=== PATIENT | male | born 1985 | race African-American/Black ===

== ENCOUNTER 2017-04-04 12:44 | Emergency (ER) | payer MEDICAID, SELFPAY ==
[~2017-04-04] VITALS: Ht 172.7 cm; Wt 74.8 kg
[~2017-04-04 12:44] MED LIST: MYLANTA II30 ML ORAL; NKM; RANITIDINE HCL150 MG ORAL
[2017-04-04] MEDS ORDERED: Bacitracin Oint UD TOPIC ONE (13:15)
[2017-04-04] MEDS ORDERED: Norco 5mg/325mg tab ORAL ONE (13:15)
--- NOTE | 2017-04-04 13:23 | Emergency Room Report ---
History of Present Illness General Chief Complaint: Skin Rash/Abscess Source: Patient Present Illness [facility] The patient is a 31-year-old male who denies any medical history presenting for a rash on his testicles. The patient states that he noticed an open wound 5 weeks prior and has been trying to self treat by using peroxide and Neosporin. He states that this has not helped and the wound has now enlarged. He denies any injury to the area and denies any prior lesions on his penis or testicles. He denies any STDs or HIV. He states pain is a 3/10 dull ache and does not radiate. Pain worse with touch. He denies other symptoms including dysuria, hematuria, fever, chills, abdominal pain Allergies: Coded Allergies: No Known Allergies (Unverified , 05/03/14) Patient History Past Medical History: see triage record Pertinent Family History: none Reviewed Nursing Documentation: PMH: Agreed, PSxH: Agreed Nursing Documentation-PMH Past Medical History: No Stated History Hx Gastrointestinal Problems: Yes - reflux Review of Systems All Other Systems: negative except mentioned in HPI Physical Exam Vital Signs Date Time Temp Pulse Resp B/P Pulse Ox O2 Delivery O2 Flow Rate FiO2 04/04/17 12:53 100.8 98 18 111/71 100 Room Air Sp02 EP Interpretation: reviewed, normal General Appearance: no apparent distress, alert, GCS 15, non-toxic Head: normocephalic, atraumatic Eyes: bilateral eye PERRL, bilateral eye normal inspection ENT: hearing grossly normal, normal pharynx, no angioedema, normal voice Gastrointestinal: normal bowel sounds, non tender, soft, non-distended, no guarding, no rebound Genitourinary: no CVA tenderness, penis normal, other - There are 2 circular shallow ulcerations on both left and right lateral scrotum. Tender to palpation. There is clear to yellow weeping. Foul odor. Musculoskeletal: back normal, gait/station normal, normal range of motion, non- tender Neurologic: alert, oriented x3, responsive, motor strength/tone normal, sensory intact, speech normal Skin: normal turgor, other - erythematous ulcerations to scrotum with weeping Lymphatic: no adenopathy Medical Decision Making PA Attestation Dr. Cherry is my supervising physician. Patient management was discussed with my supervising physician Diagnostic Impression: Primary Impression: Cellulitis Qualified Codes: L03.818 - Cellulitis of other sites Additional Impression: Herpetic lesion ER Course The patient is a 31-year-old male presenting for testicular lesions Differential diagnosis considered not limited to: Cellulitis, herpes, STD, syphilis, orchitis, among others Physical exam is consistent with herpetic lesion which has become infected The are is cleaned with sterile water and betadine. bacitracin applied with sterile dressing The patient will be treated for cellulitis and herpes with a prescription for Keflex and acyclovir. He needs to followup with primary doctor within 3 days. ER precautions given Last Vital Signs Date Time Temp Pulse Resp B/P Pulse Ox O2 Delivery O2 Flow Rate FiO2 04/04/17 12:53 100.8 98 18 111/71 100 Room Air Status: improved Disposition: HOME, SELF-CARE Condition: Improved Scripts Bacitracin (Bacitracin) 28.4 Gm Oint...g. 1 APPLIC TOPIC THREE TIMES A DAY, #28 GM Prov: TINOANMARKO P.A. 04/04/17 Amoxicillin/Potassium Clav 500-125 Tablet* (AUGMENTIN 500-125 TABLET*) 1 Each Tablet 1 TAB ORAL THREE TIMES A DAY, #21 TAB Prov: TERZIANMARKO P.A. 04/04/17 Acyclovir* (ACYCLOVIR*) 400 Mg Tablet 400 MG ORAL Q8HR for 10 Days, TAB Prov: TERZIANMARKO P.A. 04/04/17 Ibuprofen* (MOTRIN*) 600 Mg Tablet 600 MG ORAL Q8H Y for For Pain, #30 TAB 0 Refills Prov: MARKO TERRY P.A. 04/04/17 MARKO TERRY P.A. Apr 04, 2017 13:23
[2017-04-04] MEDS ORDERED: BACITRACIN15 GM TOPIC (13:39)
[2017-04-04] MEDS ORDERED: AUGMENTIN 500-1 EACH ORAL (13:39)
[2017-04-04] MEDS ORDERED: ACYCLOVIR400 MG ORAL (13:39)
[2017-04-04] MEDS ORDERED: IBUPROFEN600 MG ORAL (13:39)
[2017-04-04 13:48] VITALS: BP 111/71
[2017-04-04 13:50] VITALS: BP 111/71
== END 2017-04-04 13:52 | disposition home or self-care (01) ==
LOC: EMR 13:37
DX: L03.818 Cellulitis of other sites (principal); B00.89 Other herpesviral infection; K21.9 Gastro-esophageal reflux disease without esophagitis
CPT/HCPCS: 99284

== ENCOUNTER 2017-05-10 07:24 | Emergency (ER) | payer MEDICAID ==
[~2017-05-10] VITALS: Ht 172.7 cm; Wt 72.6 kg
[~2017-05-10 07:24] MED LIST changes: +ACYCLOVIR400 MG ORAL; +AUGMENTIN 500-1 EACH ORAL; +BACITRACIN15 GM TOPIC; +IBUPROFEN600 MG ORAL
[2017-05-10 07:51] VITALS: BP 136/72
--- NOTE | 2017-05-10 08:25 | Emergency Room Report ---
History of Present Illness General Chief Complaint: Edema Source: Patient Present Illness HPI 31YOM presents with 1 week bilateral foot swelling. No painful. No rash. No fever/chills. HIV+ - just started ARVs 2 months ago Swelling started after short trip to [place] Denies hiking, lots of climbing on trip Denies calf pain/swelling, history of DVT/PE in family Allergies: Coded Allergies: No Known Allergies (Unverified , 05/03/14) Patient History Past Medical History: HIV Past Surgical History: none Pertinent Family History: none Social History: Denies: alcohol use, drug use, smoking Immunizations: UTD Reviewed Nursing Documentation: PMH: Agreed, PSxH: Agreed Nursing Documentation-PMH Hx Gastrointestinal Problems: Yes - GERD Review of Systems Allergic: Denies: hay fever, no symptoms, other, see HPI, urticaria All Other Systems: negative except mentioned in HPI Physical Exam Vital Signs Date Time Temp Pulse Resp B/P Pulse Ox O2 Delivery O2 Flow Rate FiO2 05/10/17 07:33 98.2 99 20 136/72 99 Room Air Sp02 EP Interpretation: reviewed, normal General Appearance: normal inspection, well appearing, no apparent distress, alert Head: normocephalic, atraumatic ENT: normal ENT inspection, hearing grossly normal, normal voice Neck: normal inspection, full range of motion, supple, no bony tend Respiratory: normal inspection, lungs clear, normal breath sounds, no respiratory distress, no retraction, no wheezing Cardiovascular #1: regular rate, rhythm, no edema Gastrointestinal: normal inspection, normal bowel sounds, non tender, soft, no guarding, no hernia Genitourinary: no CVA tenderness Musculoskeletal: other - Bilateral foot swelling, 1+ pitting edema. No rash, erythema, warmth. No calf ttp Neurologic: normal inspection, alert, oriented x3, responsive, preflight inspector III-XII nml as tested, motor strength/tone normal, speech normal Psychiatric: normal inspection, judgement/insight normal, mood/affect normal Skin: normal inspection, normal color, no rash Lymphatic: normal inspection Medical Decision Making Diagnostic Impression: Primary Impression: Bilateral swelling of feet ER Course - VSS. Afebrile - No sign of infection/cellulitis - No known kidney disease or history of CHF - Unlikely acute bilateral DVT - Doppler down and were negative for DVT bilaterally - ?adverse effect of new ARVs vs lymphedema? - Labs: No leuks. H&H stable. Renal function normal - DC home with PMD followup Last Vital Signs Date Time Temp Pulse Resp B/P Pulse Ox O2 Delivery O2 Flow Rate FiO2 05/10/17 07:51 90 20 Room Air 05/10/17 07:51 98.2 136/72 99 Status: improved Disposition: HOME, SELF-CARE Referrals: NOT CHOSEN IPA/,REFERRING (PCP) ROCHELLE LUA M.D. May 10, 2017 08:25
[2017-05-10 08:28] LABS: BASOPHILS % (AUTO) 0.4 % (0.0-2.0); EOSINOPHILS % (AUTO) 5.2 % (0.0-3.0); LYMPHOCYTES % (AUTO) 30.3 % (20.0-45.0); MEAN CORPUSCULAR HEMOGLOBIN 30.1 PG (27.0-31.0); MEAN CORPUSCULAR HGB CONC 31.5 G/DL (32.0-36.0); MEAN CORPUSCULAR VOLUME 95 FL (80-99); MEAN PLATELET VOLUME 5.3 FL (6.5-10.1); MONOCYTES % (AUTO) 6.7 % (1.0-10.0); NEUTROPHILS % (AUTO) 57.4 % (45.0-75.0); PLATELET COUNT 407 K/UL (150-450); RED BLOOD COUNT 3.47 M/UL (4.70-6.10); RED CELL DISTRIBUTION WIDTH 14.9 % (11.6-14.8); WHITE BLOOD COUNT 4.4 K/UL (4.8-10.8)
[2017-05-10 08:43] LABS: ALANINE AMINOTRANSFERASE 5 U/L (3-41); ALBUMIN/GLOBULIN RATIO 0.8 (1.0-2.7); ANION GAP 12 (5-15); ASPARTATE AMINO TRANSFERASE 15 U/L (5-40); CALCIUM 8.8 mg/dL (8.6-10.2); CARBON DIOXIDE 27 mEQ/L (20-30); CHLORIDE 97 mEQ/L (98-107); CREATININE 0.7 mg/dL (0.7-1.2); GLOMERULAR FILTRATION RATE > 60 mL/min (>60); HEMOLYSIS 4; POTASSIUM 3.8 mEQ/L (3.4-4.9); SODIUM 136 mEQ/L (135-145); TOTAL PROTEIN 7.5 g/dL (6.6-8.7)
[2017-05-10 09:42] VITALS: BP 132/69
[2017-05-10 09:43] VITALS: BP 132/69
== END 2017-05-10 09:45 | disposition home or self-care (01) ==
LOC: EMR 07:57
DX: M79.89 Other specified soft tissue disorders (principal); R60.0 Localized edema; K21.9 Gastro-esophageal reflux disease without esophagitis; B20 Human immunodeficiency virus [HIV] disease
CPT/HCPCS: 36415; 80053; 85025; 93970; 99284